=== PATIENT | male | born 1965 | race Caucasian/White ===

== ENCOUNTER 2022-11-16 00:28 | Day surgery (SDC) | payer OTHER, SELFPAY ==
[2022-11-02 14:23] VITALS: BMI 32.1
--- NOTE | 2022-11-15 15:38 | PM.HPGS ---
History of Present Illness History of Present Illness Consent: Risks, benefits, and alternatives have been discussed and questions answered. Patient agrees to proceed with procedure. Chief complaint: neoplasm screening Narrative: Sean Wood is a 57 year old male referred for colon cancer screening. Review of Systems Review of Systems: All systems reviewed & are unremarkable except as noted in HPI and below PMFSH Past Medical History Medical History Ankle fracture, right Below-knee amputation of left lower extremity BMI 32.0-32.9,adult Elevated PSA, less than 10 ng/ml Encounter for screening colonoscopy Encounter to establish care Family history of thoracic aortic aneurysm GERD (gastroesophageal reflux disease) Shoulder separation Surgical History Surgical History Amputation of left lower extremity H/O palate surgery Family History Family History Father Hypertension Alcohol abuse Malignant neoplasm of prostate Aortic aneurysm Mother Diabetes mellitus Breast cancer Grandparent Diabetes mellitus Heart disease Cerebrovascular accident Lung cancer Social History Social History Smoking status: Former smoker Tobacco type: cigars Alcohol intake: current Alcohol use details: Occasionally Substance use: never Substance use type: does not use Lack of Transportation: No Lack of Food: Never True Current Housing: I Have Housing Concerned About Future Housing: No Difficulty Paying Gas/Electric Bills: No Difficulty Paying for Meds: No Currently Unemployed: No Education: High School Diploma/GED Difficulty w/ Childcare or Family Care: No Living arrangements: with family Spiritual care concerns: No Meds Home Medications and Allergies Home Medications Medication Instructions Recorded Confirmed Type famotidine 20 mg tablet 20 mg PO DAILY PRN Indigestion 09/26/22 11/02/22 History naproxen sodium 220 mg capsule 220 mg PO BID PRN Pain 09/26/22 11/02/22 History (Aleve) ibuprofen 600 mg tablet 600 mg PO TID PRN Pain 11/02/22 11/02/22 History multivitamin with minerals-folic 1 tablet PO DAILY 11/02/22 11/02/22 History acid 0.4 mg tablet Allergies Allergy/AdvReac Type Severity Reaction Status Date / Time No Known Allergies Allergy Unknown Verified 11/16/22 08:40 Exam Const: General: alert Orientation/consciousness: patient oriented x3 Resp: Auscultation: clear to auscultation bilaterally Cardio: Rhythm: regular rhythm GI: GI Palp: Yes Soft to palpation and No Tenderness to palpation present (GI) Neuro: General: patient oriented x3 Assessment and Plan Assessment and plan (1) Encounter for screening colonoscopy: Code(s): Z12.11 - Encounter for screening for malignant neoplasm of colon Status: Acute Assessment and Plan: Colonoscopy with possible biopsy or polypectomy or cautery or injection of substances.
[2022-11-16 08:42] VITALS: BP 159/97; PULSE 81; RESP 20; TEMP 36.6; O2SAT 99; BMI 31.8
[2022-11-16] MEDS: LACTATED RINGERS 1,000 ML 150 ML IV CONT (08:57)
--- NOTE | 2022-11-16 09:02 | WPDANESEPPF ---
Anes - Initial Pre Proc Eval Procedure: Operation Date: 11/16/22 09:30 Proposed Procedures p Screening Colonoscopy - Fabio Phillip MD Date/Time: 11/16/22 09:02 Surgeon: Fabio Phillip MD Pre Op Diagnosis: neoplasm screening Patient Data Age: 57 Gender: M Height: 1.88 m Weight: 112.7 kg Last Vital Signs Temp 97.8 F 11/16/22 08:42 Pulse 81 11/16/22 08:42 Resp 20 11/16/22 08:42 BP 159/97 H 11/16/22 08:42 Pulse Ox 99 11/16/22 08:42 O2 Del Method Room Air 11/16/22 08:42 Allergies Allergy/AdvReac Type Severity Reaction Status Date / Time No Known Allergies Allergy Unknown Verified 11/16/22 08:40 Home Medications Medication Instructions Recorded Confirmed Type famotidine 20 mg tablet 20 mg PO DAILY PRN Indigestion 09/26/22 11/02/22 History naproxen sodium 220 mg capsule 220 mg PO BID PRN Pain 09/26/22 11/02/22 History (Aleve) ibuprofen 600 mg tablet 600 mg PO TID PRN Pain 11/02/22 11/02/22 History multivitamin with minerals-folic 1 tablet PO DAILY 11/02/22 11/02/22 History acid 0.4 mg tablet Patient hx anesthesia problems: none Family hx anesthesia problems: none Results Review: All pre-operative results and documents have been reviewed as part of the pre-operative evaluation. [facility] Past Medical History Medical History Ankle fracture, right Below-knee amputation of left lower extremity BMI 32.0-32.9,adult Elevated PSA, less than 10 ng/ml Encounter for screening colonoscopy Encounter to establish care Family history of thoracic aortic aneurysm GERD (gastroesophageal reflux disease) Shoulder separation Surgical History Surgical History Amputation of left lower extremity H/O palate surgery Family History Family History Father Hypertension Alcohol abuse Malignant neoplasm of prostate Aortic aneurysm Mother Diabetes mellitus Breast cancer Grandparent Diabetes mellitus Heart disease Cerebrovascular accident Lung cancer Social History Social History Smoking status: Former smoker Tobacco type: cigars Alcohol intake: current Alcohol use details: Occasionally Substance use: never Substance use type: does not use Lack of Transportation: No Lack of Food: Never True Current Housing: I Have Housing Concerned About Future Housing: No Difficulty Paying Gas/Electric Bills: No Difficulty Paying for Meds: No Currently Unemployed: No Education: High School Diploma/GED Difficulty w/ Childcare or Family Care: No Living arrangements: with family Spiritual care concerns: No Anes - Eval Final PreProcedure Day of Procedure 11/16/22 09:02 Patient weight: obese Heart: regular rate and rhythm Lungs: clear to auscultation Airway: Mallampati scale class II Neurological: alert and oriented Last oral intake: >/= 8 hours ASA classification: II Emergent: no Anesthetic plan: proceed Anesthesia type and monitoring: general GIVS and standard monitoring Results Review: All pre-operative results and documents have been reviewed as part of the pre-operative evaluation. Informed Consent: The patient's anesthetic plan and its attendant risks and benefits were discussed with the patient/family/POA. Questions were solicited and answers provided to the satisfaction of the patient/family/POA.
[2022-11-16] MEDS: SIMETHICONE ORAL SUSPENSION 20 MG/0.3 ML 30 ML BOTTLE 0.6 ML IRRIGATION (09:42)
[2022-11-16 09:55] VITALS: BP 132/91; PULSE 83; RESP 21; O2SAT 100
[2022-11-16 10:05] VITALS: BP 135/87; PULSE 87; RESP 24; O2SAT 100
[2022-11-16 10:15] VITALS: BP 146/110; PULSE 80; RESP 17; O2SAT 100
== END 2022-11-16 10:23 | disposition home or self-care (01) ==
PROVIDERS: PCP Nurse Practitioner Family; Visit Provider Internal Medicine Gastroenterology
PROC: 0DJD8ZZ Inspection of Lower Intestinal Tract, Via Natural or Artificial Opening Endoscopic (ICD-10-PCS; CPT 45378; principal; 2022-11-16 09:30)
DX: Z12.11 Encounter for screening for malignant neoplasm of colon (principal); K57.30 Diverticulosis of large intestine without perforation or abscess without bleeding; D12.8 Benign neoplasm of rectum; K21.9 Gastro-esophageal reflux disease without esophagitis; Z87.891 Personal history of nicotine dependence; E66.9 Obesity, unspecified; Z68.31 Body mass index [BMI] 31.0-31.9, adult; Z89.512 Acquired absence of left leg below knee
CPT/HCPCS: 45385; 88305; J2704; J7120

== ENCOUNTER 2022-11-17 13:32 | Outpatient (CLI) | payer OTHER, SELFPAY ==
--- NOTE | 2022-11-17 13:51 | ECHO_ITS ---
Patient Info Name: Sean Wood Age: 57 years : 1965 Gender: Male Ht: 75 in Wt: 250 lbs BSA: 2.48 m2 HR: 75 bpm BP: 167 / 110 mmHg Technical Quality: Fair Exam Date: 11/17/2022 2:00 PM Exam Location: [facility] Patient Status: Outpatient Admit Date: 11/17/2022 Staff Ordering Physician: Karrie Cain NP Electronic Heat Seal Operator: Mindy Woodard RDCS Attending Provider: Karrie Cain NP Exam Type: CA echo doppler color flow Study Info Indications - family hx/o ischemic heart disease Complete two-dimensional, color flow and Doppler transthoracic echocardiogram is performed. Summary 1. Complete two-dimensional, color flow and Doppler transthoracic echocardiogram is performed. 2. Left ventricular chamber dimension is normal. 3. Ventricular septum is sigmoid shaped. No LVOT obstruction. 4. Left ventricular systolic function is normal, estimated at 60-65%. 5. The left ventricular diastolic function is grade II diastolic dysfunction. 6. E/e' 7 is not elevated. 7. Left atrial chamber dimension is mildly enlarged. 8. There is mild aortic valve sclerosis. 9. There is trace aortic valve regurgitation. 10. There is mild mitral valve regurgitation. 11. There is trace tricuspid valve regurgitation. 12. No pulmonary hypertension, estimated pulmonary arterial systolic pressure is 25 mmHg. 13. There is trace pulmonic regurgitation. Left Ventricle E/e' 7 is not elevated. Ventricular septum is sigmoid shaped. No LVOT obstruction. Left ventricular chamber dimension is normal. Left ventricular systolic function is normal, estimated at 60-65%. The left ventricular diastolic function is grade II diastolic dysfunction. Right Ventricle Right ventricular chamber dimension is normal. Right ventricular systolic function is normal. Left Atria Left atrial chamber dimension is mildly enlarged. Right Atria Right atrial chamber dimension is normal. Aortic Valve The aortic valve is trileaflet. There is mild aortic valve sclerosis. There is no aortic valve stenosis. There is trace aortic valve regurgitation. Pulmonic Valve There is trace pulmonic regurgitation. Mitral Valve There is no mitral valve stenosis. There is mild mitral valve regurgitation. Tricuspid Valve There is trace tricuspid valve regurgitation. No pulmonary hypertension, estimated pulmonary arterial systolic pressure is 25 mmHg. Pericardium/Pleural There is no pericardial effusion. Inferior Vena Cava Normal inferior vena cava with >50% collapse upon inspiration consistent with normal right atrial pressure, 5 mmHg. Aorta The aortic root size at the sinus of Valsalva is normal. Left Ventricular Outflow Tract Name Value Normal LVOT 2D LVOT Diameter 2.1 cm LVOT Doppler LVOT Peak Gradient 4 mmHg LVOT Mean Gradient 2 mmHg LVOT VTI 22 cm LVOT VTI/AV VTI Ratio 1.0 LVOT Stroke Volume 76 ml LVOT CO 15.1 l/min LVOT CI 6.1 l/min/m2 Pulmonic Valve Name
== END 2022-11-17 13:33 | disposition home or self-care (01) ==
PROVIDERS: PCP Nurse Practitioner Family; Visit Provider Nurse Practitioner Family
DX: I34.0 Nonrheumatic mitral (valve) insufficiency (principal); Z82.49 Family history of ischemic heart disease and other diseases of the circulatory system
CPT/HCPCS: 93306

== ENCOUNTER 2023-06-18 12:27 | Outpatient (CLI) | payer OTHER, SELFPAY ==
--- NOTE | ~2023-06-18 | PE_ITS ---
EXAMINATION: PET_PETPSMAST_PT DATE: 06/18/2023 14:55 INDICATION: Prostate cancer TECHNIQUE: 8.574 mCi of pipflufolastat F-18 (18-F-DCFPyL) was administered i.v. Low dose computed to mography (CT) images were acquired from the base of the brain to the base of the brain to the proxima l thighs for attenuation correction and anatomic localization. Positron emission tomography (PET) vera ges were acquired in the same distribution beginning 90 minutes after injection. Images including fus ed PET/CT images were reconstructed in axial, coronal, and sagittal planes. Automated exposure contro l technique was employed. The dose-length product was 1166.54mGy-cm. COMPARISON: CT chest and abdomen dated 06/12/2007 FINDINGS: Head/neck: Typical pattern of symmetric physiologic increased activity in the lacrimal, parotid and submandibula r glands as well as along the mucosa of the nasal and oral cavities, the geovani-, naso- and hypopharynx, the glottis and esophagus. There is also a typical pattern of symmetric tiny foci of mild likely phy siologic neural ganglia uptake at a few bilateral cervical neural foramina. No pathologically enlarge d cervical lymphadenopathy or suspicious foci of increased uptake in the visualized head or neck. Chest: Calcified left upper lobe nodule and calcified left hilar lymph nodes consistent with old granulomato us disease. No suspicious pulmonary nodules, pneumonia, pulmonary edema or pleural effusion. Heart si ze is normal. No pericardial effusion. Thoracic aorta is normal in caliber. No pathologically enlarge d or PSMA avid thoracic lymphadenopathy. Abdomen/pelvis/proximal thighs: Physiologic renal accumulation and excretion of activity in the kidneys, bladder and along portions o f ureters. 4 cm exophytic soft tissue density lesion at the posterior upper pole of the right kidney without evident PSMA activity curve for either complex proteinaceous/hemorrhagic cyst or solid renal cell carcinoma. Normal degree and slightly heterogenous pattern of increased uptake throughout the li kranthi and spleen without radiologic correlate or dominant PSMA avid lesion. 1.4 cm hepatic cyst with ojeda btle associated photopenic defect in the left hepatic lobe. The gallbladder, pancreas and bilateral a drenal glands are normal. Moderate uptake scattered throughout the bowels with typical duodenal and p roximal jejunal predominance and without radiologic correlate, also likely physiologic. There is a sm all focus of mild uptake with maximal SUV of 5.6 located along the posterior margin of the prostate w hich appears peripheral to the margins of the mild uptake at the distal rectum which is absent the pr imary site of a reported prostate cancer. No other abnormal foci of increased uptake or pathologicall y enlarged lymphadenopathy in the abdomen, pelvis or proximal thighs. Musculoskeletal: Tiny sclerotic lesion at the anterolateral right third rib with minimal associated PSMA uptake with m aximal SUV of 2.6. No other suspicious lytic, blastic or PSMA avid bone lesions. IMPRESSION: 1. Small focus of mild uptake in the posterior prostate which may represent the primary site of a rep orted prostate cancer. 2. Indeterminate small sclerotic lesion at the lateral right third rib with minimal associated PSMA a ctivity potentially representing a very early osseous metastatic lesion although the degree of uptake remains relatively low for metastatic disease. This is new since CT dated 06/12/2007 but would recomm end correlation with any more recent prior outside imaging. 2. Indeterminate 4 similar exophytic soft tissue density lesion arising from the upper pole the right kidney which could represent either a proteinaceous/hemorrhagic cyst or solid renal cell carcinoma. Recommend further evaluation with pre and postcontrast MRI or CT. Given the size, ultrasound could po tentially also be diagnostic.
== END 2023-06-18 12:28 | disposition home or self-care (01) ==
PROVIDERS: PCP Nurse Practitioner Family; Visit Provider Urology
DX: C61 Malignant neoplasm of prostate (principal); M89.9 Disorder of bone, unspecified; N28.9 Disorder of kidney and ureter, unspecified
CPT/HCPCS: 78815; A9595

== ENCOUNTER 2023-07-10 08:43 | Outpatient (CLI) | payer OTHER, SELFPAY ==
--- NOTE | ~2023-07-10 | MR_ITS ---
EXAMINATION: MR abdomen wo/w con DATE: 07/10/2023 09:41 INDICATION: Renal mass TECHNIQUE: Magnetic resonance imaging (MRI) of the abdomen was performed without and with 20 mL Multi catherine intravenous contrast. Sequences included coronal T2-weighted SS-FSE, coronal and axial FS 2D-F IESTA, axial STIR FSE, axial T2-weighted SS-FSE, axial T2-weighted FS SS-FSE, axial diffusion-weighte d SE, axial dual-echo T1-weighted FSPGR, and axial and coronal T1-weighted LAVA. Postcontrast axial T 1-weighted LAVA images were obtained in a time course. Postcontrast coronal T1-weighted LAVA images w ere obtained. COMPARISON: PET/CT dated 06/18/2023 FINDINGS: Heart size is normal. No pericardial or pleural effusion. There are few T2 hyperintense nonenhancing hepatic cysts the largest in the left hepatic lobe measuring 1.6 cm. Gallbladder, spleen, pancreas an d bilateral adrenal glands are normal. There are a few subcentimeter T2 hyperintense nonenhancing bossman al cysts. Heterogeneous T1 and T2 signal along with subtle heterogeneous enhancement of a 4.1 cm exop hytic mass arising from the upper pole of the right kidney consistent with renal cell carcinoma. Visu alized portion of the bowels are unremarkable. No pathologically enlarged abdominal or upper pelvic l ymphadenopathy. T1 hyperintense and fat saturating hemangiomas at T9 and T10. Chronic mild superior e ndplate compression fracture at L1. Moderate to severe lower lumbar spondylosis with fibrofatty and f ibrovascular degenerative endplate changes at L4-L5 and L5-S1. IMPRESSION: 1. 4.1 cm enhancing exophytic mass consistent with renal cell carcinoma at the upper pole of the righ t kidney. Reviewed, dictated and finalized at location A. [facility]IST IMPRESSION: 1. 4.1 cm enhancing exophytic mass consistent with renal cell carcinoma at the upper pole of the right kidney.
== END 2023-07-10 08:44 | disposition home or self-care (01) ==
PROVIDERS: PCP Nurse Practitioner Family; Visit Provider Urology
DX: N28.89 Other specified disorders of kidney and ureter (principal)
CPT/HCPCS: 74183; A9577

== ENCOUNTER → 2024-03-21 10:06 | Outpatient (REF) | payer OTHER, SELFPAY | LOC: ANHLAB 10:06 | PROVIDERS: PCP Nurse Practitioner Family; Visit Provider Plastic Surgery | DX: C44.42 Squamous cell carcinoma of skin of scalp and neck (principal) | CPT/HCPCS: 88305 ==